=== PATIENT | male | born 1995 | race Caucasian/White ===

== ENCOUNTER → 2017-05-12 12:22 | Emergency (ER) | payer BC, OTHER ==
--- NOTE | 2017-05-12 13:08 | ED ---
Back Pain - HPI Summary HPI Summary: 22M presents with pain down right leg for a two weeks. He states it starts in his back and travels down the back of his legs to his feet. He states it is sharp in nature. He denies any injury. He denies any loss of bowel or bladder or saddle anaesthesia. He has been using ibuprofen without relief. - History of Current Complaint Chief Complaint: EDExtremityLower Stated Complaint: RIGHT LEG AND HIP PAIN Time Seen by Provider: 05/12/17 12:45 Pain Intensity: 8 - Allergies/Home Medications Allergies/Adverse Reactions: Allergies Allergy/AdvReac Type Severity Reaction Status Date / Time No Known Allergies Allergy Verified 10/03/16 12:08 PMH/Surg Hx/FS Hx/Imm Hx Endocrine/Hematology History: Denies: Hx Anticoagulant Therapy Cardiovascular History: Denies: Hx Hypertension Infectious Disease History: No Infectious Disease History: Denies: Traveled Outside the [place] in Last 30 Days - Family History Known Family History: Positive: None - denies heart disease and dm, Hypertension - Social History Alcohol Use: None Substance Use Type: Reports: None Smoking Status (MU): Never Smoked Tobacco Review of Systems Negative: Fever Negative: Chest Pain Negative: Shortness Of Breath Positive: Myalgia - sciatica All Other Systems Reviewed And Are Negative: Yes Physical Exam Triage Information Reviewed: Yes Vital Signs On Initial Exam: Initial Vitals Temp Pulse Resp BP Pulse Ox 96.9 F 66 16 136/91 100 05/12/17 12:24 05/12/17 12:24 05/12/17 12:24 05/12/17 12:24 05/12/17 12:24 Vital Signs Reviewed: Yes Appearance: Positive: Well-Appearing Skin: Positive: Warm, Dry Head/Face: Positive: Normal Head/Face Inspection Eyes: Positive: Normal, Conjunctiva Clear Respiratory/Lung Sounds: Positive: Clear to Auscultation, Breath Sounds Present Cardiovascular: Positive: Normal, RRR Musculoskeletal: Positive: Strength/ROM Intact - back, Other - tenderness over SI joint on right side, pos SLR right, good pulses Neurological: Positive: Reflexes Intact - patella Diagnostics - Vital Signs Vital Signs Temp Pulse Resp BP Pulse Ox 05/12/17 12:25 96.9 F 65 16 136/91 98 05/12/17 12:24 96.9 F 66 16 136/91 100 - Laboratory Lab Statement: Any lab studies that have been ordered have been reviewed, and results considered in the medical decision making process. Back Pain Course/Dx - Course Course Of Treatment: 22M presents with pain down right leg for a two weeks. He states it starts in his back and travels down the back of his legs to his feet. He states it is sharp in nature. He denies any injury. He has right SI joint tenderness on exam with pos SLR. will treat with flexeril and prednisone for sciatica pain. patient understands and agrees with plan - Diagnoses Differential Diagnosis/HQI/PQRI: Positive: Herniated Disc, Sprain, Other - sciatica, Provider Diagnoses: Sciatica Discharge - Discharge Plan Condition: Good Disposition: HOME Prescriptions: Cyclobenzaprine TAB* [Flexeril 10 MG TAB*] 10 mg PO TID PRN #9 tab PRN Reason: Pain methylPREDNISolone TAB* [Medrol TAB*] 4 mg PO DAILY #1 packet Patient Education Materials: Sciatica (ED) Referrals: [facility] [Outside] Additional Instructions: Follow directions on package for Medrol pack Take muscle relaxers three times a day for 3 days Use ibuprofen or Tylenol for pain every 6 hours ice/heat area, move as much as possible Establish care with primary care physician Return to ED if unable to ambulate or develop any new or worsening symptoms
[2017-05-12 13:31] VITALS: BP 141/83
== END | disposition home or self-care (01) ==
LOC: ED 12:22
DX: M54.31 Sciatica, right side (principal)
CPT/HCPCS: 99282